=== PATIENT | male | born 1960 | race Caucasian/White ===

== ENCOUNTER 2018-12-24 14:12 | Emergency (ER) | payer BC ==
[2018-12-24] MEDS ORDERED: KETOROLAC TROMETHAMINE INJ/PF 30 MG/1 ML SDV IV ONE (14:53)
[2018-12-24] MEDS ORDERED: ONDANSETRON HCL INJ/PF 4 MG/2 ML SDV IV ONE ×2 (14:53→18:11)
[2018-12-24] MEDS ORDERED: NORMAL SALINE 1000 ML 1,000 ML IV ONE (14:53)
--- NOTE | 2018-12-24 14:54 | ER Document Report ---
ED Medical Screen (RME) - General TRAVEL OUTSIDE OF THE [place] IN LAST 30 DAYS: No <SINCERE MEJÍA - Last Filed: 12/24/18 14:53> <JOHN LOPEZ - Last Filed: 12/24/18 19:51> - General Chief Complaint: Flank Pain Stated Complaint: FLANK PAIN Time Seen by Provider: 12/24/18 14:51 Primary Care Provider: [facility] [Provider Group] - Follow up in 3-5 days NASH COULTER DO [NO LOCAL MD] - Follow up in 1 week Notes: 58-year-old male with history of kidney stones in the emergency department with complaints of acute and severe right flank pain that began this afternoon. His and patient states that for the past week he has been having a little bit of some subtle back pain but today he got significantly worse. He states that he felt badly this morning and then the pain came on very sharp and he began to vomit. He states that he had a kidney stone about 3 years ago and his urologist had to place a stent. He denies any fevers, chills, chest pain, shortness of breath, urinary retention. He states that he has had gina hematuria today. (JOHN LOPEZ) - Related Data Allergies/Adverse Reactions: No Known Allergies Allergy (Verified 12/24/18 14:13) Past Medical History - Past Medical History Cardiac Medical History: Reports: Hx Hypercholesterolemia, Hx Hypertension - on meds Denies: Hx Coronary Artery Disease, Hx Heart Attack Pulmonary Medical History: Denies: Hx Asthma, Hx Bronchitis, Hx COPD, Hx Pneumonia Neurological Medical History: Denies: Hx Cerebrovascular Accident, Hx Seizures Renal/ Medical History: Reports: Hx Kidney Stones GI Medical History: Reports: Hx Gastroesophageal Reflux Disease Musculoskeltal Medical History: Denies Hx Arthritis Past Surgical History: Reports: Hx Kidney (Renal Surgery) - For kidney stone, Hx Nose Surgery, Hx Orthopedic Surgery - Immunizations Hx Diphtheria, Pertussis, Tetanus Vaccination: Yes <SINCERE MEJÍA - Last Filed: 12/24/18 14:53> - General Information source: Patient - Social History Cigarette use (# per day): Yes Frequency of alcohol use: None Drug Abuse: None Lives with: Spouse/Significant other Family history: Reviewed & Not Pertinent <GURJIT LOPEZBETH Guanaco - Last Filed: 12/24/18 19:51> Physical Exam - Vital signs Vitals: Temp Pulse Resp BP Pulse Ox 98.0 F 76 16 139/73 H 96 12/24/18 14:16 12/24/18 14:16 12/24/18 14:16 12/24/18 14:16 12/24/18 14:16 Course - Laboratory Result Diagrams: 12/24/18 15:10 12/24/18 15:10 <GURJIT LOPEZBETH Guanaco - Last Filed: 12/24/18 19:51> - Vital Signs Vital signs: Temp Pulse Resp BP Pulse Ox 98.7 F 67 18 126/67 H 98 12/24/18 19:00 12/24/18 19:00 12/24/18 19:00 12/24/18 19:00 12/24/18 19:00 - Laboratory Laboratory results interpreted by me: 12/24/18 12/24/18 12/24/18 15:10 15:10 15:10 WBC 11.2 H RDW 14.1 H BUN 22 H Creatinine 1.40 H Est GFR (MDRD) Non-Af 52 L Calcium 10.6 H Urine Blood LARGE H Doctor's Discharge <SINCERE MEJÍA - Last Filed: 12/24/18 14:53> <JOHN LOPEZ - Last Filed: 12/24/18 19:51> - Discharge Clinical Impression: Kidney stones, Right flank pain, Hydronephrosis Vomiting Qualifiers: Vomiting type: unspecified Vomiting Intractability: non-intractable Nausea presence: with nausea Qualified Code(s): R11.2 - Nausea with vomiting, unspecified Condition: Stable Disposition: HOME, SELF-CARE Instructions: Kidney Stone ([facility]) Additional Instructions: FOLLOW UP WITH UROLOGIST WITHOUT FAIL. FOLLOW UP WITH PRIMARY CARE. TAKE MEDICINES PRESCRIBED. PUSH FLUIDS. AVOID CAFFEINE, MILK. RETURN IMMEDIATELY IF WORSENING PAIN, INTRACTABLE VOMITING, FEVERS. Prescriptions: Tamsulosin HCl [Flomax 0.4 mg Cap.sr] 0.4 mg PO DAILY #10 cap.sr.24h Oxycodone HCl/Acetaminophen [Percocet 5-325 mg Tablet] 1 - 2 tab PO Q6H #20 tabl et Ondansetron [Zofran Odt 4 mg Tablet] 1 - 2 tab PO Q4H PRN #15 tab.rapdis PRN Reason: For Nausea/Vomiting Referrals: NASH COULTER DO [NO LOCAL MD] - Follow up in 1 week [facility] [Provider Group] - Follow up in 3-5 days
[2018-12-24 15:29] LABS: ABSOLUTE EOSINOPHILS # (AUTO) 0.2 10^3/uL (0.0-0.6); ABSOLUTE LYMPHOCYTES (AUTO) 2.1 10^3/uL (0.5-4.7); ABSOLUTE NEUT (AUTO) 7.9 10^3/uL (1.7-8.2); BASOPHILS % (AUTO) 0.4 % (0-2); EOSINOPHILS % (AUTO) 1.7 % (0-6); HEMATOCRIT 43.4 % (37.9-51.0); LYMPHOCYTES % (AUTO) 18.3 % (13-45); MEAN CORPUSCULAR HEMOGLOBIN 30.3 pg (27.0-33.4); MEAN CORPUSCULAR HGB CONC 34.5 g/dL (32.0-36.0); MEAN CORPUSCULAR VOLUME 88 fl (80-97); MONOCYTES % (AUTO) 9.1 % (3-13); PLATELET COUNT 233 10^3/uL (150-450); RED BLOOD COUNT 4.95 10^6/uL (4.35-5.55); RED CELL DISTRIBUTION WIDTH 14.1 % (11.5-14.0); SEGMENTED NEUTROPHILS % (AUTO) 70.5 % (42-78); TOTAL CELLS COUNTED % (AUTO) 100 %; WHITE BLOOD COUNT 11.2 10^3/uL (4.0-10.5)
[2018-12-24] MEDS ORDERED: HYDROMORPHONE HCL INJ/PF 2 MG/ML AMPULE IV ONE ×4 (15:45→19:03)
[2018-12-24 15:49] LABS: APPEARANCE,URINE SLIGHTLY-CLOUDY; BILIRUBIN,URINE NEGATIVE (NEGATIVE); COLOR,URINE YELLOW; GLUCOSE, URINE NEGATIVE (NEGATIVE); KETONES,URINE NEGATIVE (NEGATIVE); LEUKOCYTE ESTERASE,URINE NEGATIVE (NEGATIVE); NITRITE,URINE NEGATIVE (NEGATIVE); PROTEIN,URINE NEGATIVE (NEGATIVE); URINE SPECIFIC GRAVITY 1.015; UROBILINOGEN,URINE NEGATIVE mg/dL (<2.0)
[2018-12-24 15:50] LABS: ALKALINE PHOSPHATASE 61 U/L (38-126); ANION GAP 14 (5-19); ASPARTATE AMINO TRANSFERASE 34 U/L (17-59); BILIRUBIN,DIRECT 0.3 mg/dL (0.0-0.4); BILIRUBIN,TOTAL 0.8 mg/dL (0.2-1.3); BLOOD UREA NITROGEN 22 mg/dL (7-20); CALCIUM 10.6 mg/dL (8.4-10.2); CARBON DIOXIDE 22 mmol/L (22-30); CHLORIDE 106 mmol/L (98-107); GLUCOSE 99 mg/dL (75-110); POTASSIUM 4.1 mmol/L (3.6-5.0); TOTAL PROTEIN 7.8 g/dL (6.3-8.2)
--- NOTE | 2018-12-24 15:57 | RADIOLOGY REPORT (SQ) ---
EXAM DESCRIPTION: CT ABD/PELVIS NO ORAL OR IV COMPLETED DATE/TIME: 12/24/2018 3:38 pm REASON FOR STUDY: right flank pain hx kidney stone COMPARISON: None. TECHNIQUE: CT scan of the abdomen and pelvis performed without intravenous or oral contrast. Images reviewed with lung, soft tissue, and bone windows. Reconstructed coronal and sagittal MPR images revi ewed. All images stored on PACS. All CT scanners at this facility use dose modulation, iterative reconstruction, and/or weight based d osing when appropriate to reduce radiation dose to as low as reasonably achievable (ALARA). [facility]: Dose Right [facility]: CareDose [facility]: Dose Right [facility]: Teradose 4D [facility]: Smart Missionly RADIATION DOSE: CT Rad equipment meets quality standard of care and radiation dose reduction techniq ues were employed. CTDIvol: 16.4 mGy. DLP: 930 mGy-cm.mGy. LIMITATIONS: None. FINDINGS: LOWER CHEST: No significant findings. No nodules or infiltrates. NON-CONTRASTED LIVER, SPLEEN, ADRENALS: Evaluation limited by lack of IV contrast. No identified sign ificant masses. PANCREAS: No masses. No peripancreatic inflammatory changes. GALLBLADDER: No identified stones by CT criteria. No inflammatory changes to suggest cholecystitis. RIGHT KIDNEY AND URETER: Cysts. No suspicious masses. Assessment limited by lack of IV contrast. 3 mm stone in the right ureter at the level of L3- 4. Moderate hydronephrosis. LEFT KIDNEY AND URETER: Cysts. No suspicious masses. Assessment limited by lack of IV contrast. Re nal calculi measuring up to 2 mm. No hydronephrosis or hydroureter. AORTA AND RETROPERITONEUM: No aneurysm. No retroperitoneal masses or adenopathy. BOWEL AND PERITONEAL CAVITY: No obvious masses or inflammatory changes. No free fluid. APPENDIX: Not visualized. PELVIS, BLADDER, AND ABDOMINAL WALL:No abnormal masses. No free fluid. Bladder normal. BONES: Nothing acute. OTHER: No other significant finding. IMPRESSION: 3 mm stone right ureter. Moderate hydronephrosis. COMMENT: Quality ID # [id number]: Final reports with documentation of one or more dose reduction techniques (e.g., Automated exposure control, adjustment of the mA and/or kV according to patient size, use of iterative reconstruction technique) TECHNICAL DOCUMENTATION: JOB ID: [id number] [employer]- All Rights Reserved Reading location - IP[facility]workstation name: [email or web address]
[2018-12-24] MEDS ORDERED: TAMSULOSIN HCL 0.4 MG CAP.SR.24H PO ONE (16:59)
--- NOTE | 2018-12-24 19:59 | ER Document Report ---
ED General - General Chief Complaint: Flank Pain Stated Complaint: FLANK PAIN Time Seen by Provider: 12/24/18 14:51 Primary Care Provider: [facility] [Provider Group] - Follow up in 3-5 days NASH COULTER DO [NO LOCAL MD] - Follow up in 1 week TRAVEL OUTSIDE OF THE [place] IN LAST 30 DAYS: No - HPI Notes: 58-year-old male to the emergency department with complaints of acute and severe right flank pain that began this afternoon with associated vomiting. He states that he has had dull back pain for the past week but today it got significantly worse. He also states that he has had blood in his urine. He has a history of kidney stones and he states that this feels similar. He denies any fevers, chills, chest pain, shortness of breath, passing out, urinary retention. His last stone was 3 years ago and he had to have a stent placed. He has not seen a urologist since then. - Related Data Allergies/Adverse Reactions: No Known Allergies Allergy (Verified 12/24/18 14:13) Past Medical History - General Information source: Patient - Social History Smoking Status: Never Smoker Cigarette use (# per day): Yes Frequency of alcohol use: None Drug Abuse: None Lives with: Spouse/Significant other Family History: Reviewed & Not Pertinent Patient has suicidal ideation: No Patient has homicidal ideation: No - Past Medical History Cardiac Medical History: Reports: Hx Hypercholesterolemia, Hx Hypertension - on meds Denies: Hx Coronary Artery Disease, Hx Heart Attack Pulmonary Medical History: Denies: Hx Asthma, Hx Bronchitis, Hx COPD, Hx Pneumonia Neurological Medical History: Denies: Hx Cerebrovascular Accident, Hx Seizures Renal/ Medical History: Reports: Hx Kidney Stones. Denies: Hx Peritoneal Dialysis GI Medical History: Reports: Hx Gastroesophageal Reflux Disease Musculoskeletal Medical History: Denies Hx Arthritis Past Surgical History: Reports: Hx Kidney (Renal Surgery) - For kidney stone, Hx Nose Surgery, Hx Orthopedic Surgery - Immunizations Hx Diphtheria, Pertussis, Tetanus Vaccination: Yes Review of Systems - Review of Systems Constitutional: denies: Chills, Diaphoresis, Fever EENT: No symptoms reported Cardiovascular: denies: Chest pain, Palpitations, Dyspnea, Syncope, Dizziness, Lightheaded Respiratory: denies: Cough, Short of breath Gastrointestinal: Abdominal pain, Nausea, Vomiting. denies: Diarrhea Genitourinary: Flank pain, Hematuria. denies: Burning, Dysuria, Frequency Musculoskeletal: No symptoms reported Skin: No symptoms reported Hematologic/Lymphatic: No symptoms reported Neurological/Psychological: No symptoms reported -: Yes All other systems reviewed and negative Physical Exam - Vital signs Vitals: Temp Pulse Resp BP Pulse Ox 98.0 F 76 16 139/73 H 96 12/24/18 14:16 12/24/18 14:16 12/24/18 14:16 12/24/18 14:16 12/24/18 14:16 Interpretation: Hypertensive - General General appearance: Alert In distress: Mild - Mild pain distress - HEENT Head: Normocephalic, Atraumatic Eyes: Normal Pupils: PERRL - Respiratory Respiratory status: No respiratory distress Chest status: Nontender Breath sounds: Normal Chest palpation: Normal - Cardiovascular Rhythm: Regular Heart sounds: Normal auscultation Murmur: No - Abdominal Inspection: Normal Distension: No distension Bowel sounds: Normal Tenderness: Tender - Positive tenderness to palpation over the right flank. No guarding, no rebound, negative Martinez sign, negative McBurney's point, negative Rovsing's. Organomegaly: No organomegaly - Back Back: CVA tenderness - Positive right flank pain - Neurological Neuro grossly intact: Yes Cognition: Normal Orientation: AAOx4 [place] Coma Scale Eye Opening: Spontaneous [place] Coma Scale Verbal: Oriented [place] Coma Scale Motor: Obeys Commands Margot Coma Scale Total: 15 Speech: Normal Motor strength normal: LUE, RUE, LLE, RLE Sensory: Normal - Psychological Associated symptoms: Normal affect, Normal mood - Skin Skin Temperature: Warm Skin Moisture: Dry Skin Color: Normal Course - Re-evaluation Re-evalutation: 12/24/18 Patient feels better after Dilaudid and Zofran. Noted CT reading with 3 mm stone with right hydronephrosis. He does not have a concurrent urinary tract infection. Will p.o. challenge the patient and give Flomax. Patient did well after p.o. challenge of jasper valorie and cecilia crackers. He st ates that his pain is 0 out of 5. He states he would like to go home. As patient was getting up to use the restroom prior to discharge he developed acute pain and vomiting. We medicated the patient and monitored for some time. After 4 mg of Zofran and 1.5 of Dilaudid patient is feeling much better and he feels like he would like to go home. I have urged him to return immediately if he has any worsening pain, intractable vomiting, fevers, any other concerns. I will give him follow-up for urology. He agrees with the plan. Impression: Right-sided kidney stone with hydronephrosis and right flank pain. Patient currently without pain and doing well. Noted urinalysis with gina blood but not concerning for concurrent infection. We will follow the treatment plan as outlined above and have patient follow-up with urology. Patient and agree with the plan. - Vital Signs Vital signs: Temp Pulse Resp BP Pulse Ox 98.7 F 67 18 126/67 H 98 12/24/18 19:00 12/24/18 19:00 12/24/18 19:00 12/24/18 19:00 12/24/18 19:00 - Laboratory Result Diagrams: 12/24/18 15:10 12/24/18 15:10 Laboratory results interpreted by me: 12/24/18 12/24/18 12/24/18 15:10 15:10 15:10 WBC 11.2 H RDW 14.1 H BUN 22 H Creatinine 1.40 H Est GFR (MDRD) Non-Af 52 L Calcium 10.6 H Urine Blood LARGE H - Diagnostic Test Radiology reviewed: Image reviewed, Reports reviewed Discharge - Discharge Clinical Impression: Kidney stones, Right flank pain Vomiting Qualifiers: Vomiting type: unspecified Vomiting Intractability: non-intractable Nausea presence: with nausea Qualified Code(s): R11.2 - Nausea with vomiting, unspecified Hydronephrosis Qualifiers: Hydronephrosis type: unspecified Qualified Code(s): N13.30 - Unspecified hydronephrosis Condition: Stable Disposition: HOME, SELF-CARE Instructions: Kidney Stone ([facility]) Additional Instructions: FOLLOW UP WITH UROLOGIST WITHOUT FAIL. FOLLOW UP WITH PRIMARY CARE. TAKE MEDICINES PRESCRIBED. PUSH FLUIDS. AVOID CAFFEINE, MILK. RETURN IMMEDIATELY IF WORSENING PAIN, INTRACTABLE VOMITING, FEVERS. Prescriptions: Tamsulosin HCl [Flomax 0.4 mg Cap.sr] 0.4 mg PO DAILY #10 cap.sr.24h Oxycodone HCl/Acetaminophen [Percocet 5-325 mg Tablet] 1 - 2 tab PO Q6H #20 tablet Ondansetron [Zofran Odt 4 mg Tablet] 1 - 2 tab PO Q4H PRN #15 tab.rapdis PRN Reason: For Nausea/Vomiting Referrals: [facility] [Provider Group] - Follow up in 3-5 days NASH COULTER DO [NO LOCAL MD] - Follow up in 1 week
[2018-12-24 20:29] VITALS: BP 122/62
== END 2018-12-24 19:45 | disposition home or self-care (01) ==
LOC: ER 14:12
DX: N20.0 Calculus of kidney (principal); N13.30 Unspecified hydronephrosis; R11.2 Nausea with vomiting, unspecified; R10.9 Unspecified abdominal pain; Z87.442 Personal history of urinary calculi; E78.00 Pure hypercholesterolemia, unspecified; I10 Essential (primary) hypertension
CPT/HCPCS: 36415; 83690; 85025; 80053; 81001; 74176; J1885; J1170; J2405; J7030; 96361; 96374; 96375; 96376; 99284